=== PATIENT | female | born 2000 | race Caucasian/White ===

== ENCOUNTER 2019-08-24 01:18 | Emergency (ER) | payer MEDICAID ==
[~2019-08-24] VITALS: Ht 162.6 cm; Wt 71.0 kg
--- NOTE | 2019-08-24 02:39 | NUR ---
LABS DRAWN, XRAY COMPLETE. PT TO RESTROOM WITH STEADY GAIT.
[2019-08-24 02:44] LABS: ALBUMIN 4.2 g/dL (3.4-5.0); ANION GAP 6 mmol/L (5-15); CALCIUM 9.5 mg/dL (8.5-10.1); CHLORIDE 109 mmol/L (98-107); CREATININE 0.75 mg/dL (0.55-1.02)
[2019-08-24 02:51] LABS: BASOPHILS # (AUTO) 0.04 x10^3/uL (0-0.3); BASOPHILS % (AUTO) 0 % (0-1); EOSINOPHILS # (AUTO) 0.13 x10^3/uL (0-0.8); EOSINOPHILS % (AUTO) 1 % (1-7); LYMPHOCYTES # (AUTO) 1.84 x10^3/uL (1-6.1); LYMPHOCYTES % (AUTO) 20 % (22-44); MD NO; MEAN CORPUSCULAR HEMOGLOBIN 29.5 pg (27.0-34.8); MEAN CORPUSCULAR HGB CONC 33.6 g/dL (32.4-35.8); MEAN CORPUSCULAR VOLUME 87.7 fL (80-100); MEAN PLATELET VOLUME 8.4 fL (7.4-10.4); MONOCYTES # (AUTO) 0.52 x10^3/uL (0-1.4); MONOCYTES % (AUTO) 6 % (2-9); NEUTROPHILS % (AUTO) 72 % (42-75); PLATELET COUNT 300 x10^3/uL (130-400); RED BLOOD COUNT 4.45 x10^6/uL (3.82-5.3); RED CELL DISTRIBUTION WIDTH 13.6 % (9.6-15.2)
[2019-08-24] MEDS ORDERED: LORazepam 1MG TABLET PO ONE (03:00)
[2019-08-24] MEDS ORDERED: LORazepam 1MG TABLET ONE (03:05)
--- NOTE | 2019-08-24 03:30 | NUR ---
PT HAD PANIC ATTACK WHILE IN THE ER, HEART RATE ELEVATED, FINGERS TINGLING. PLACED ON OXYGEN, AND FOCUSED ON DEEP BREATHING. PT GIVEN 1MG ATIVAN PO. HR THEN DECREASED AND PT FELT WELL TO BE D/C
[2019-08-24 03:41] VITALS: BP 115/85
== END 2019-08-24 03:43 | disposition home or self-care (01) ==
LOC: ED 03:40
DX: F41.1 Generalized anxiety disorder (principal); R06.4 Hyperventilation; R06.00 Dyspnea, unspecified; I45.10 Unspecified right bundle-branch block; R94.31 Abnormal electrocardiogram [ECG] [EKG]
CPT/HCPCS: 36415; 71045; 80048; 82040; 84703; 85025; 93005; 99285

== ENCOUNTER 2019-09-15 17:10 | Emergency (ER) | payer MEDICAID ==
[~2019-09-15] VITALS: Ht 162.6 cm; Wt 73.1 kg
[2019-09-15 17:13] VITALS: BP 128/76
--- NOTE | 2019-09-15 17:29 | NUR ---
THIS IS A 19 YEAR OLD FEMALE WHO C/O OF CHEST PAIN EARLIER TODAY, STATES WAS HERE 3 WEEKS AGO FOR THE SAME. ON RX FOR ANXIETY AND ACID REFLUX
[2019-09-15 18:13] LABS: BASOPHILS # (AUTO) 0.05 x10^3/uL (0-0.3); BASOPHILS % (AUTO) 1 % (0-1); EOSINOPHILS # (AUTO) 0.15 x10^3/uL (0-0.8); EOSINOPHILS % (AUTO) 2 % (1-7); LYMPHOCYTES % (AUTO) 24 % (22-44); MD NO; MEAN CORPUSCULAR HEMOGLOBIN 29.6 pg (27.0-34.8); MEAN CORPUSCULAR HGB CONC 33.1 g/dL (32.4-35.8); MEAN CORPUSCULAR VOLUME 89.6 fL (80-100); MEAN PLATELET VOLUME 8.2 fL (7.4-10.4); MONOCYTES % (AUTO) 5 % (2-9); NEUTROPHILS # (AUTO) 5.24 x10^3/uL (1.8-8.0); NEUTROPHILS % (AUTO) 69 % (42-75); PLATELET COUNT 307 x10^3/uL (130-400); RED BLOOD COUNT 4.59 x10^6/uL (3.82-5.3); RED CELL DISTRIBUTION WIDTH 13.1 % (9.6-15.2)
[2019-09-15 18:22] LABS: ALBUMIN 4.2 g/dL (3.4-5.0); ANION GAP 8 mmol/L (5-15); CALCIUM 9.1 mg/dL (8.5-10.1); CHLORIDE 109 mmol/L (98-107)
[2019-09-15] MEDS ORDERED: SERTRALINE 50MG TABLET ONE (18:45)
--- NOTE | 2019-09-15 18:48 | NUR ---
MEDS ADMIN PER JUN.
[2019-09-15] MEDS ORDERED: SERTRALINE 50MG TABLET PO ONE (19:00)
== END 2019-09-15 19:13 | disposition home or self-care (01) ==
LOC: ED 17:43
DX: R07.89 Other chest pain (principal); R06.02 Shortness of breath; R00.0 Tachycardia, unspecified; F41.1 Generalized anxiety disorder; R11.0 Nausea; R00.2 Palpitations
CPT/HCPCS: 36415; 80048; 82040; 84443; 84703; 85025; 93005; 99284

== ENCOUNTER 2019-10-02 07:51 | Emergency (ER) | payer MEDICAID ==
[~2019-10-02] VITALS: Ht 163.8 cm; Wt 72.6 kg
--- NOTE | 2019-10-02 07:59 | NUR ---
triage note: EKG done in triage
[2019-10-02] MEDS ORDERED: LORazepam 1MG TABLET PO ONE (08:30)
[2019-10-02] MEDS ORDERED: LORazepam 1MG TABLET ONE (08:40)
[2019-10-02 09:04] LABS: FREE T4 (FREE THYROXINE) 1.05 ng/dL (0.76-1.46)
[2019-10-02 09:35] VITALS: BP 115/69
== END 2019-10-02 09:49 | disposition home or self-care (01) ==
LOC: ED 08:30
DX: F41.1 Generalized anxiety disorder (principal); R07.89 Other chest pain; R00.0 Tachycardia, unspecified
CPT/HCPCS: 36415; 71046; 84439; 84443; 85379; 93005; 99285

== ENCOUNTER 2019-11-21 14:56 | Emergency (ER) | payer MEDICAID ==
[~2019-11-21] VITALS: Ht 162.6 cm; Wt 73.1 kg
[2019-11-21 14:59] VITALS: BP 147/88
--- NOTE | 2019-11-21 16:05 | NUR ---
Enio pham in [facility] - 11/21/19 at 1607 by SARAH PT TO ROOM FROM [facility] AT THIS TIME.
--- NOTE | 2019-11-21 16:08 | NUR ---
PT IN CT, KIM FROM CT WILL BRING TO ROOM 18 WHEN DONE.
[2019-11-21] MEDS ORDERED: NEOSPORIN OINT. PKT 1 PACKET ONE (18:06)
== END 2019-11-21 18:43 | disposition home or self-care (01) ==
LOC: ED 17:25
DX: S29.012A Strain of muscle and tendon of back wall of thorax, initial encounter (principal); S80.211A Abrasion, right knee, initial encounter; S09.90XA Unspecified injury of head, initial encounter; M25.531 Pain in right wrist; R00.0 Tachycardia, unspecified; W01.0XXA Fall on same level from slipping, tripping and stumbling without subsequent striking against object, initial encounter; Y93.79 Activity, other specified sports and athletics; Y92.410 Unspecified street and highway as the place of occurrence of the external cause; Y99.8 Other external cause status
CPT/HCPCS: 29125; 70450; 72072; 72110; 72125; 99285

== ENCOUNTER 2019-11-23 09:05 | Emergency (ER) | payer MEDICAID ==
[~2019-11-23] VITALS: Ht 162.6 cm; Wt 74.2 kg
[2019-11-23 09:07] VITALS: BP 129/77
--- NOTE | 2019-11-23 09:20 | NUR ---
CARIN SEPULVEDA AT BEDSIDE.
== END 2019-11-23 10:00 | disposition home or self-care (01) ==
LOC: ED 09:40
DX: S63.521A Sprain of radiocarpal joint of right wrist, initial encounter (principal); V19.9XXA Pedal cyclist (driver) (passenger) injured in unspecified traffic accident, initial encounter; Y93.89 Activity, other specified; Y92.488 Other paved roadways as the place of occurrence of the external cause; Y99.8 Other external cause status
CPT/HCPCS: 29125; 99283

== ENCOUNTER 2019-11-29 16:11 | Emergency (ER) | payer MEDICAID ==
[~2019-11-29] VITALS: Ht 162.6 cm; Wt 75.0 kg
[2019-11-29 16:17] VITALS: BP 124/71
[2019-11-29 18:58] LABS: ANION GAP 7 mmol/L (5-15); CALCIUM 8.6 mg/dL (8.5-10.1); CHLORIDE 112 mmol/L (98-107); CREATININE 0.65 mg/dL (0.55-1.02)
[2019-11-29] MEDS ORDERED: SODIUM CHLORIDE 0.9% 1,000ML IVBOLUS ONE (19:00)
== END 2019-11-29 20:48 | disposition home or self-care (01) ==
LOC: ED 17:06
DX: F41.1 Generalized anxiety disorder (principal); R42 Dizziness and giddiness; R06.4 Hyperventilation; R53.1 Weakness
CPT/HCPCS: 36415; 80048; 82040; 96360; 99283; J7030

== ENCOUNTER 2020-01-08 11:40 | Emergency (ER) | payer MEDICAID ==
[~2020-01-08] VITALS: Ht 162.6 cm; Wt 73.3 kg
--- NOTE | 2020-01-08 12:10 | NUR ---
Pt reports she did a back flip off a 1 story house for a youtbe video and she missed the trampoline and hit the edge of her head one week ago. Pt now has sever buring pain in her "brain". Pt reports no loss of vission or changes. Pt has gross neuro intact. Pt denies medical hx and any episodes of nause or vomitting. Pt had fall precautions reveiwed. Pt connected to Spo2 and NiPb. Rodrigo DEL ROSARIO at bedside for eval. Pt reports recently having an IUD placed.
--- NOTE | 2020-01-08 13:53 | NUR ---
Patient/Caregiver given discharge instructions and they have confirmed that they understand the instructions. Patient ambulatory with steady gait.
[2020-01-08 13:54] VITALS: BP 123/84
== END 2020-01-08 13:55 | disposition home or self-care (01) ==
LOC: ED 12:55
DX: S16.1XXA Strain of muscle, fascia and tendon at neck level, initial encounter (principal); S06.9X1A Unspecified intracranial injury with loss of consciousness of 30 minutes or less, initial encounter; W19.XXXA Unspecified fall, initial encounter; Y93.39 Activity, other involving climbing, rappelling and jumping off; Y92.098 Other place in other non-institutional residence as the place of occurrence of the external cause; Y99.8 Other external cause status
CPT/HCPCS: 70450; 72125; 99285

== ENCOUNTER 2020-07-10 09:23 | Emergency (ER) | payer MEDICAID ==
[~2020-07-10] VITALS: Ht 162.6 cm; Wt 70.8 kg
--- NOTE | 2020-07-10 09:39 | NUR ---
state editor note: ekg taken in triage.
--- NOTE | 2020-07-10 10:10 | NUR ---
PT TO ROOM 21 W/ C/O MACIAS AND DIZZINESS STARTED YESTERDAY AT 1600. PT STATES HX SIMILAR SX. PT STATES MACIAS NOT SO BAD TODAY BUT C/O "FEELS LIKE MY HEAD IS ON FIRE". PT ALSO NOTED TO HAVE TACHYCARDIA STATES SHE HAS SEEN A SHOE DRESSER AND WAS TOLD HER HR IS HIGH "BUT THEY DON'T KNOW WHY. I'VE HAD A STRESS TEST, US OF MY HEART, EVERYTHING AND THEY SAY IT'S JUST HIGH". PT RESTING ON GURNEY. NADN. MONITORS APPLIED. VSS. PIV INITIATED. GLO MARIANO AT BEDSIDE FOR EVAL.
[2020-07-10] MEDS ORDERED: PROCHLORPERAZINE 5 MG/ML, 2ML ONE (10:13)
[2020-07-10] MEDS ORDERED: KETOROLAC 30 MG/1 ML ONE (10:13)
[2020-07-10] MEDS ORDERED: DIPHENHYDRAMINE 50 MG/ML, 1ML ONE (10:13)
[2020-07-10 10:14] VITALS: BP 123/84
[2020-07-10] MEDS ORDERED: ADENOSINE 6 MG/2 ML IVPush ONE (10:30)
--- NOTE | 2020-07-10 10:34 | NUR ---
PT MEDICATED PER JUN AND IMMEDIATELY GOT ANXIOUS AND HEART RATE BEGAN TO INCREASE TO 191. ERP DR. FAIR AND GLO MARIANO AWARE. PT NOW AT HR 140'S. PT REMAINS ANXIOUS.
[2020-07-10 10:36] LABS: BASOPHILS % (AUTO) 1 % (0-1); EOSINOPHILS % (AUTO) 1 % (1-7); LYMPHOCYTES % (AUTO) 29 % (22-44); MEAN CORPUSCULAR HEMOGLOBIN 29.8 pg (27.0-34.8); MEAN CORPUSCULAR HGB CONC 33.7 g/dL (32.4-35.8); MEAN PLATELET VOLUME 8.2 fL (7.4-10.4); MONOCYTES % (AUTO) 6 % (2-9); NEUTROPHILS % (AUTO) 63 % (42-75); PLATELET COUNT 298 x10^3/uL (130-400); RED BLOOD COUNT 4.58 x10^6/uL (3.82-5.3); RED CELL DISTRIBUTION WIDTH 13.8 % (9.6-15.2)
[2020-07-10] MEDS ORDERED: LORazepam 2 MG/ML, 1ML ONE (10:36)
[2020-07-10] MEDS: LORazepam 2 MG/ML, 1ML IV ONE ×2 (10:39→10:40)
[2020-07-10 10:40] LABS: MD NO
[2020-07-10 10:41] LABS: ALANINE AMINOTRANSFERASE 21 U/L (12-78); ALBUMIN 4.4 g/dL (3.4-5.0); ANION GAP 5 mmol/L (5-15); CALCIUM 9.1 mg/dL (8.5-10.1); CHLORIDE 108 mmol/L (98-107); CREATININE 0.74 mg/dL (0.55-1.02)
[2020-07-10 10:46] LABS: ALKALINE PHOSPHATASE 70 U/L (45-117); BILIRUBIN,TOTAL 0.5 mg/dL (0.2-1.0); TOTAL PROTEIN 8.3 g/dL (6.4-8.2)
--- NOTE | 2020-07-10 10:55 | NUR ---
PT ANXIOUS IN ROOM. CONTINUES TO STATE "CAN I GO HOME? I JUST WANT TO LEAVE. CAN I JUST SIGN THAT PAPER FOR YOU SO I CAN LEAVE? I JUST WANT TO GO HOME". PT HR ATY 126 BUT ESCALATES TO 139 WHEN ANY HEALTHCARE PROVIDER IN ROOM. PT EDUCATED ON HR AND IMPORTANCE OF MONITORING. PT CONTINUES TO STATE SHE WANTS TO LEAVE. PIV REMOVED. AMA SHEET SIGNED.
[2020-07-10] MEDS ORDERED: SODIUM CHLORIDE 0.9% 1,000ML IVBOLUS ONE (11:00)
[2020-07-10] MEDS ORDERED: PROCHLORPERAZINE 5 MG/ML, 2ML IVPush ONE (11:00)
[2020-07-10] MEDS ORDERED: SODIUM CHLORIDE FLUSH 10ML SYR IVF ONE (11:00)
[2020-07-10] MEDS ORDERED: KETOROLAC 30 MG/1 ML IVPush ONE (11:00)
[2020-07-10] MEDS ORDERED: DIPHENHYDRAMINE 50 MG/ML, 1ML IVPush ONE (11:00)
== END 2020-07-10 11:00 | disposition home or self-care (01) ==
LOC: ED 10:11
DX: R51.9 Headache, unspecified (principal); F43.9 Reaction to severe stress, unspecified; R00.0 Tachycardia, unspecified
CPT/HCPCS: 36415; 80053; 83735; 84443; 84703; 85025; 93005; 96361; 96374; 96375; 99284; J0780; J1200; J1885; J7030; J2060

== ENCOUNTER 2020-07-13 09:55 | Emergency (ER) | payer MEDICAID ==
[~2020-07-13] VITALS: Ht 162.6 cm; Wt 71.5 kg
[2020-07-13 10:27] VITALS: BP 137/87
--- NOTE | 2020-07-13 10:37 | NUR ---
pa at bedside for evaluation at this time.
== END 2020-07-13 11:09 | disposition home or self-care (01) ==
LOC: ED 10:50
DX: G44.211 Episodic tension-type headache, intractable (principal); F41.1 Generalized anxiety disorder
CPT/HCPCS: 99283

== ENCOUNTER 2020-09-15 18:18 | Emergency (ER) | payer MEDICAID ==
[~2020-09-15] VITALS: Ht 162.6 cm; Wt 61.7 kg
[2020-09-15 18:21] VITALS: BP 129/80
== END 2020-09-15 18:51 | disposition left against medical advice (07) ==
LOC: ED 18:45
DX: M79.602 Pain in left arm (principal); Z53.21 Procedure and treatment not carried out due to patient leaving prior to being seen by health care provider